=== PATIENT | male | born 1990 | race Caucasian/White ===

== ENCOUNTER 2019-10-20 17:33 | Emergency (ER) | payer MEDICAID ==
[~2019-10-20] VITALS: Ht 180.3 cm; Wt 91.0 kg
[~2019-10-20 17:33] MED LIST: NO HOME MEDS
[2019-10-20] MEDS ORDERED: ondansetron/PF 4mg/2ml inj IV ONE ×2 (19:30→20:15)
[2019-10-20] MEDS ORDERED: normal saline 1000ml 1,000 ML IV ONE (19:30)
[2019-10-20 19:42] LABS: BASOPHILS # (AUTO) 0.1 X10'3 (0-0.2); BASOPHILS % (AUTO) 0.3 % (0-1); EOSINOPHILS % (AUTO) 0.1 % (0-6); HEMOGLOBIN 17.4 g/dl (14.0-17.9); LYMPHOCYTES # (AUTO) 1.6 X10'3 (1.1-4.8); MEAN CORPUSCULAR HEMOGLOBIN 29.5 PG (27.0-31.0); MEAN CORPUSCULAR HGB CONC 34.1 g/dL (33.0-36.5); MEAN CORPUSCULAR VOLUME 86.5 FL (78-98); MEAN PLATELET VOLUME 8.5 FL (7.4-10.4); MONOCYTES # (AUTO) 1.4 X10'3 (0-0.9); MONOCYTES % (AUTO) 9.2 % (2-12); NEUTROPHILS # (AUTO) 11.6 X10'3 (1.8-7.7); NEUTROPHILS % (AUTO) 79.4 % (42-75); PLATELET COUNT 282 X10'3 (140-440); RED BLOOD COUNT 5.89 X10'6 (4.70-6.10); RED CELL DISTRIBUTION WIDTH 12.6 % (11.5-14.5); WHITE BLOOD COUNT 14.7 X10'3 (4.5-11.0)
[2019-10-20 19:48] LABS: ALANINE AMINOTRANSFERASE 43 U/L (12-78); ALBUMIN 4.7 G/DL (3.4-5.0); ALBUMIN/GLOBULIN RATIO 1.1 (1.1-1.5); ALKALINE PHOSPHATASE 103 IU/L (46-116); ANION GAP 9 (8-16); ASPARTATE AMINO TRANSFERASE 21 U/L (10-37); BILIRUBIN,TOTAL 0.9 MG/DL (0.1-1.0); BLOOD UREA NITROGEN 16 MG/DL (7-18); BUN/CREATININE RATIO 8.8 (5.4-32.0); CALCIUM 9.8 MG/DL (8.5-10.1); CHLORIDE 100 MMOL/L (99-107); CREATININE 1.81 MG/DL (0.60-1.10); GLUCOSE 124 MG/DL (70-104); POTASSIUM 3.8 MMOL/L (3.5-5.1); SODIUM 138 MMOL/L (135-145); TOTAL CARBON DIOXIDE 29.5 MMOL/L (24-32); eGFR 45 ML/MIN
[2019-10-20] MEDS ORDERED: normal saline 1000ML IV soln IVB ONE (20:15)
[2019-10-20] MEDS ORDERED: pantoprazole 40 MG vial IV ONE (20:15)
[2019-10-20 20:34] LABS: LIPASE 91 U/L (73-393)
[2019-10-20 21:16] LABS: CLARITY,URINE CLEAR (Clear); COLOR,URINE YELLOW (Yellow); GLUCOSE, URINE NEGATIVE (Neg); KETONES,URINE NEGATIVE (Neg); LEUKOCYTE ESTERASE ,URINE SMALL (Neg); NITRITES, URINE NEGATIVE (Neg); OCCULT BLOOD,URINE NEGATIVE (Neg); PROTEIN,URINE NEGATIVE (Neg); UROBILINOGEN,URINE 0.2 E.U/dL (0.2-1.0)
[2019-10-20 21:21] LABS: UA COLLECTION TYPE CLN CATCH MIDSTREAM
[2019-10-20 21:23] LABS: BACTERIA,URINE 2+ /HPF (Neg); RBC,URINE 0-2 /HPF (0-2); SQUAMOUS EPITHELIAL CELL,UR FEW /LPF (FEW)
[2019-10-20 21:30] LABS: URINE AMPHETAMINE SCREEN POSITIVE (Neg); URINE BARBITUATE SCREEN NEGATIVE (Neg); URINE BENZODIAZEPINES SCREEN NEGATIVE (Neg); URINE CANNABINOID SCREEN POSITIVE (Neg); URINE COCAINE SCREEN NEGATIVE (Neg); URINE METHADONE SCREEN NEGATIVE (Neg); URINE OPIATE SCREEN POSITIVE (Neg); URINE PHENCYCLIDINE SCREEN NEGATIVE (Neg)
[2019-10-20] MEDS ORDERED: CefTRIAXone 250MG IM Kit w/LIDOcaine IM ONE (21:40)
[2019-10-20] MEDS ORDERED: azithromycin 250mg tablet PO ONE (21:40)
[2019-10-20 21:57] VITALS: BP 144/89
== END 2019-10-20 21:58 | disposition home or self-care (01) ==
LOC: ER 17:34
DX: F19.10 Other psychoactive substance abuse, uncomplicated (principal); R11.10 Vomiting, unspecified; F20.9 Schizophrenia, unspecified; F17.200 Nicotine dependence, unspecified, uncomplicated; F11.90 Opioid use, unspecified, uncomplicated; F15.90 Other stimulant use, unspecified, uncomplicated
CPT/HCPCS: 36415; 80053; 80305; 81001; 83690; 85025; 87491; 87591; 96361; 96372; 96374; 96375; 96376; 99284; C9113; J0696; J2405; J7030